=== PATIENT | male | born 1960 | race Caucasian/White ===

== ENCOUNTER 2019-07-19 16:21 | Outpatient (CLI) | payer OTHER, SELFPAY ==
[2019-07-19 16:49] LABS: Hematocrit 41.2 % (42.0-52.0); Hemoglobin 14.5 g/dL (14.0-18.0); Mean Corpuscular HGB Conc 35.2 g/dl (32-36); Mean Corpuscular Hemoglobin 34.9 pg (26-34); Mean Corpuscular Volume 99.3 fl (80-100); Mean Platelet Volume 9.5 fl (7.4-10.4); Platelet Count Result 240 k/mm3 (150-375); Red Blood Count 4.15 M/mm3 (4.6-6.20); Red Cell Distribution Width 13.3 % (11.5-14.5); White Blood Count 5.3 K/mm3 (4.5-10.0)
[2019-07-19 16:59] LABS: Cholesterol 204 mg/dL (0-200); HDL Direct 60 mg/dL; Triglycerides 208 mg/dL (<150)
[2019-07-19 17:10] LABS: LDL Cholesterol Direct 115 mg/dL
[2019-07-19 17:35] LABS: Free T4 Free Thyroxine 0.88 ng/mL (0.78-2.19)
== END 2019-07-19 16:22 | disposition home or self-care (01) ==
PROVIDERS: PCP Family Medicine; Visit Provider Nurse Practitioner Family
DX: R53.83 Other fatigue (principal); E78.5 Hyperlipidemia, unspecified
CPT/HCPCS: 36415; 80061; 84439; 84443; 85027

== ENCOUNTER 2020-04-13 02:29 | Outpatient (CLI) | payer OTHER, SELFPAY ==
[2020-04-13 19:32] LABS: SARS-CoV-2 RNA PCR Negative
== END 2020-04-13 02:30 | disposition home or self-care (01) ==
LOC: ANHCOVIDDT 02:29
PROVIDERS: PCP Family Medicine; Visit Provider Internal Medicine Gastroenterology
DX: Z01.812 Encounter for preprocedural laboratory examination (principal); Z20.822 Contact with and (suspected) exposure to COVID-19
CPT/HCPCS: C9803; U0003

== ENCOUNTER 2020-04-16 00:44 | Day surgery (SDC) | payer OTHER, SELFPAY ==
[2020-04-09 08:35] VITALS: BMI 27.8
[2020-04-16 08:51] VITALS: BP 146/71; PULSE 58; RESP 16; TEMP 36.4; O2SAT 100; BMI 26.6
[2020-04-16] MEDS: LACTATED RINGERS 1,000 ML 150 ML IV CONT (09:03)
--- NOTE | 2020-04-16 09:21 | WPDANESEPPF ---
Anes - Initial Pre Proc Eval Procedure: Operation Date: 04/16/20 10:00 Proposed Procedures p Screening Colonoscopy - Mio Palacios MD Date/Time: 04/16/20 09:21 Surgeon: Mio Palacios MD Pre Op Diagnosis: Neoplasm Screening Patient Data Age: 59 Gender: M Height: 5 ft 10 in Weight: 84.1 kg Last Vital Signs Temp 97.6 F 04/16/20 08:51 Pulse 58 L 04/16/20 08:51 Resp 16 04/16/20 08:51 BP 146/71 H 04/16/20 08:51 Pulse Ox 100 04/16/20 08:51 Allergies Allergy/AdvReac Type Severity Reaction Status Date / Time fexofenadine Allergy Intermediate Night Verified 04/16/20 08:50 sweats Penicillins Allergy Intermediate Rash Verified 04/16/20 08:50 Home Medications Medication Instructions Recorded Confirmed Type hydrocodone 5 mg-acetaminophen 325 1 tablet PO Q6H PRN 06/06/19 04/16/20 History mg tablet folic acid 1 mg tablet 1 mg PO DAILY 01/09/20 04/09/20 History methotrexate sodium 2.5 mg tablet 25 mg PO WEEKLY tablet 01/09/20 04/16/20 History amlodipine 5 mg tablet 5 mg PO DAILY #90 tablet 01/23/20 04/09/20 Rx sodium,potassium,mag sulfates 17.5 See Rx Instructions PO .COMPLEX 03/26/20 Rx gram-3.13 gram-1.6 gram oral soln #354 ml aspirin [Adult Low Dose Aspirin] 81 mg PO DAILY 04/09/20 04/09/20 History atorvastatin 10 mg PO DAILY 04/09/20 04/09/20 History indomethacin 50 mg PO DAILY 04/09/20 04/09/20 History prednisone 5 mg PO DAILY 04/09/20 04/16/20 History Patient hx anesthesia problems: none Family hx anesthesia problems: none PMFSH Past Medical History Medical History (Updated 03/07/20 @ 09:42 by Vijay Bolanos MD) Chronic low back pain Essential (primary) hypertension Fatigue History of colon polyps Mixed hyperlipidemia Psoriatic arthritis Surgical History Surgical History (Updated 01/09/20 @ 16:21 by Jackeline Wade) History of ankle surgery left 1988 or 1989 Family History Family History Mother Patient's mother is Family history of malignant neoplasm, Onset Age: 58 Father Patient's father is Social History Social History Smoking status: Never smoker Second hand tobacco smoke exposure: No Alcohol intake: current Drinks per week: 6 Substance use: current Substance use type: marijuana Other substance usage details: OCC. FOR ARTHRITIS PAIN Living arrangements: with family Spiritual care concerns: No Anes - Eval Final PreProcedure Day of Procedure 04/16/20 09:21 Patient weight: normal Heart: regular rate and rhythm Lungs: clear to auscultation Airway: Mallampati scale class II Neurological: alert and oriented Last oral intake: >/= 8 hours ASA classification: II Emergent: no Anesthetic plan: proceed Anesthesia type and monitoring: general GIVS and standard monitoring Informed Consent: The patient's anesthetic plan and its attendant risks and benefits were discussed with the patient/family/POA. Questions were solicited and answers provided to the satisfaction of the patient/family/POA.
--- NOTE | 2020-04-16 10:24 | PM.HPGS ---
History of Present Illness History of Present Illness Consent: Risks, benefits, and alternatives have been discussed and questions answered. Patient agrees to proceed with procedure. Chief complaint: Neoplasm Screening Narrative: Nikita Nicole is a 59 year old male with colon polyp 2014 Review of Systems Constitutional: Constitutional: Denies headache(s) and Denies weakness Eyes: Eyes: Denies blurry vision ENT: Reports Normal hearing present, Denies headache(s) and Denies neck pain Cardiovascular: Cardiovascular: Denies chest pain and Denies dyspnea Respiratory: Respiratory: Denies dyspnea Gastrointestinal: Gastrointestinal: Reports no additional gastrointestinal complaints Genitourinary: Genitourinary: Denies dysuria Musculoskeletal: Musculoskeletal: Denies neck pain Integumentary/Breasts: Skin/Breast: Denies dry skin Neurologic: Reports Normal hearing present, Denies headache(s) and Denies weakness Psychiatric: Psychiatric: Denies anxiety Endocrine: Endocrine: Denies change in body appearance Hematologic/Lymphatic: Hematologic/Lymphatic: Denies easy bleeding Allergic/Immunologic: Allergic/Immunologic: Denies urticaria [facility] Past Medical History Medical History (Updated 04/16/20 @ 10:24 by Mio Palacios MD) Adenomatous colon polyp Chronic low back pain Essential (primary) hypertension Fatigue History of colon polyps Mixed hyperlipidemia Psoriatic arthritis Surgical History Surgical History (Updated 01/09/20 @ 16:21 by Jackeline Wade) History of ankle surgery left 1988 or 1989 Family History Family History Mother Patient's mother is Family history of malignant neoplasm, Onset Age: 58 Father Patient's father is Social History Social History Smoking status: Never smoker Second hand tobacco smoke exposure: No Alcohol intake: current Drinks per week: 6 Substance use: current Substance use type: marijuana Other substance usage details: OCC. FOR ARTHRITIS PAIN Living arrangements: with family Spiritual care concerns: No Meds Home Medications and Allergies Home Medications Medication Instructions Recorded Confirmed Type hydrocodone 5 mg-acetaminophen 325 1 tablet PO Q6H PRN 06/06/19 04/16/20 History mg tablet folic acid 1 mg tablet 1 mg PO DAILY 01/09/20 04/09/20 History methotrexate sodium 2.5 mg tablet 25 mg PO WEEKLY tablet 01/09/20 04/16/20 History amlodipine 5 mg tablet 5 mg PO DAILY #90 tablet 01/23/20 04/09/20 Rx sodium,potassium,mag sulfates 17.5 See Rx Instructions PO .COMPLEX 03/26/20 Rx gram-3.13 gram-1.6 gram oral soln #354 ml aspirin [Adult Low Dose Aspirin] 81 mg PO DAILY 04/09/20 04/09/20 History atorvastatin 10 mg PO DAILY 04/09/20 04/09/20 History indomethacin 50 mg PO DAILY 04/09/20 04/09/20 History prednisone 5 mg PO DAILY 04/09/20 04/16/20 History Allergies Allergy/AdvReac Type Severity Reaction Status Date / Time fexofenadine Allergy Intermediate Night Verified 04/16/20 08:50 sweats Penicillins Allergy Intermediate Rash Verified 04/16/20 08:50 Vital Signs Vital Signs - 24 hr 04/16/20 08:51 Temperature 97.6 F Pulse Rate 58 L Respiratory Rate 16 Blood Pressure 146/71 H Pulse Oximetry 100 Exam Const: General: comfortable and no acute distress HENMT: General nose exam: Normal nares present Eyes: General: appearance normal, both eyes and all related structures Neck: Neck: no JVD Resp: Auscultation: clear to auscultation bilaterally Cardio: Rate: regular rate Rhythm: regular rhythm GI: Inspection: non-distended GI Palp: Yes Soft to palpation Skin: General skin exam: normal color Neuro: General: gait normal Speech: normal speech Extrem: General: normal to inspection Psych: Mental Status: mental status grossly normal Assessment and
[2020-04-16 10:48] VITALS: BP 99/68; PULSE 74; RESP 22; O2SAT 98
[2020-04-16 10:58] VITALS: BP 113/79; PULSE 58; RESP 18; O2SAT 97
[2020-04-16 11:08] VITALS: BP 125/78; PULSE 54; RESP 20; O2SAT 99
[2020-04-16 11:18] VITALS: BP 123/80; PULSE 58; RESP 18; O2SAT 100
== END 2020-04-16 11:23 | disposition home or self-care (01) ==
PROVIDERS: PCP Family Medicine; Visit Provider Internal Medicine Gastroenterology
PROC: 0DJD8ZZ Inspection of Lower Intestinal Tract, Via Natural or Artificial Opening Endoscopic (ICD-10-PCS; CPT 45378; principal; 2020-04-16 10:00)
DX: Z12.11 Encounter for screening for malignant neoplasm of colon (principal); Z86.010 Personal history of colon polyps; I10 Essential (primary) hypertension; E78.2 Mixed hyperlipidemia; L40.50 Arthropathic psoriasis, unspecified; M54.9 Dorsalgia, unspecified; G89.29 Other chronic pain; Z79.891 Long term (current) use of opiate analgesic; F12.90 Cannabis use, unspecified, uncomplicated
CPT/HCPCS: 45378; C9803; J2704; J7120; U0003

== ENCOUNTER 2020-11-06 10:45 | Emergency (ER) | payer OTHER, SELFPAY ==
--- NOTE | ~2020-11-06 | XR_ITS ---
EXAMINATION: XR ribs RT 2V INDICATION: Right-sided chest pain TECHNIQUE: 3 views of the right ribs were obtained. COMPARISON: None. FINDINGS: The visualized portions of the chest are unremarkable. No displaced rib fracture is identif ied. There is no pleural effusion or pneumothorax. Calcified left hilar lymph nodes are consistent wi th old granulomatous disease. IMPRESSION: 1. No displaced rib fracture identified. Reviewed, dictated and finalized at location A.
--- NOTE | ~2020-11-06 | XR_ITS ---
EXAMINATION: XR shoulder RT min 2V INDICATION: Right shoulder pain TECHNIQUE: Four views of the right shoulder are submitted. COMPARISON: 02/13/2013 FINDINGS: Normal alignment. No fracture. There is a stable lucent lesion with thin sclerotic margin i n the proximal humeral shaft, consistent with a benign finding. There is mild osteoarthritis of the a cromioclavicular and glenohumeral joints. Severe cervical spondylosis is incidentally noted. Soft tis sues are unremarkable. IMPRESSION: 1. No acute osseous abnormality. Reviewed, dictated and finalized at location A.
[2020-11-06 10:56] VITALS: BP 132/77; PULSE 63; RESP 16; TEMP 37; O2SAT 100
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
[2020-11-06] MEDS: TETANUS,DIPHTHERIA,AC PERTUSSIS ADULT (0.5 ML) BOOSTRIX IM (11:26)
== END 2020-11-06 11:50 | disposition home or self-care (01) ==
PROVIDERS: Emergency Provider Nurse Practitioner
DX: S49.91XA Unspecified injury of right shoulder and upper arm, initial encounter (principal); S20.211A Contusion of right front wall of thorax, initial encounter; S20.411A Abrasion of right back wall of thorax, initial encounter; S80.211A Abrasion, right knee, initial encounter; V18.4XXA Pedal cycle driver injured in noncollision transport accident in traffic accident, initial encounter; Z23 Encounter for immunization; I10 Essential (primary) hypertension; E78.2 Mixed hyperlipidemia; L40.50 Arthropathic psoriasis, unspecified; Z79.82 Long term (current) use of aspirin
CPT/HCPCS: 71100; 73030; 90471; 90715; 99214; G0463

== ENCOUNTER 2022-03-13 10:28 | Outpatient (CLI) | payer OTHER, SELFPAY ==
--- NOTE | ~2022-03-13 | XR_ITS ---
XR shoulder RT min 2V DATE: 03/13/2022 10:51 INDICATION: Bilateral shoulder pain. Diminished range of motion TECHNIQUE: 4 views of right shoulder COMPARISON: 11/2020 right shoulder FINDINGS: Stable benign proximal humeral shaft lesion with sclerotic rim, possibly a benign fibrous c ortical defect. Normal alignment at the acromioclavicular and glenohumeral joints. Mild right glenohumeral osteoarthr itis with small bony ossicle adjacent to the inferior glenoid rim. Consider CT or MR evaluation. No f racture, dislocation, periosteal reaction or bone destruction. IMPRESSION: Small bony ossicle is suggested along the inferior glenoid rim, not evident on 11/2020. C onsider CT or MR for further evaluation as clinically appropriate Pole benign fibrous cortical defect of the proximal humeral shaft, stable since 11/2020 Reviewed, dictated and finalized at location B. [employer] IMPRESSION: Small bony ossicle is suggested along the inferior glenoid rim, not evident on 11/2020. Consider CT or MR for further evaluation as clinically shobha ropriate Pole benign fibrous cortical defect of the proximal humeral shaft, stable since 11/2020
--- NOTE | ~2022-03-13 | XR_ITS ---
XR shoulder LT min 2V DATE: 03/13/2022 10:52 INDICATION: Bilateral shoulder pain, loss of motion. TECHNIQUE: 4 views of left shoulder COMPARISON: None FINDINGS: No fracture or dislocation, periosteal reaction or bone destruction or abnormal soft tissue calcification. Mild osteoarthritis at left glenohumeral joint. IMPRESSION: Mild osteoarthritic the left glenohumeral joint Reviewed, dictated and finalized at location B. ASSIGNMENT EDITOR
== END 2022-03-13 10:29 | disposition home or self-care (01) ==
LOC: ANHIMG 10:34
PROVIDERS: PCP Family Medicine
DX: M25.511 Pain in right shoulder (principal); M19.012 Primary osteoarthritis, left shoulder
CPT/HCPCS: 73030

== ENCOUNTER 2022-05-15 12:43 | Outpatient (CLI) | payer OTHER, SELFPAY ==
--- NOTE | 2022-05-15 | ECG_ITS ---
Measurements Intervals [place] Rate: 67 P: 59 W[place]: 176 QRS: 43 QRSD: 95 T: 45 QT: 396 QTc: 421 Interpretive Statements SINUS RHYTHM WITH ATRIAL BEATS NO PREVIOUS ECG AVAILABLE FOR COMPARISON Electronically Signed On 05-16-2022 8:15:03 [employer] by Swathi Cerna M.D.
[2022-05-15 13:29] LABS: Anion Gap 3 mmol/L (8-16); Blood Urea Nitrogen 29 mg/dL (9-20); Carbon Dioxide 30 mmol/L (22-30); Chloride 103 mmol/L (98-107); Estimated Glomerular Filt Rate > 60; Glucose 98 mg/dL (65-110); Potassium 3.6 mmol/L (3.4-5.0); Sodium 136 mmol/L (137-145)
== END 2022-05-15 12:44 | disposition home or self-care (01) ==
LOC: ANHLAB 12:47
PROVIDERS: PCP Family Medicine; Visit Provider Orthopaedic Surgery Hand Surgery
DX: M25.511 Pain in right shoulder (principal); M25.512 Pain in left shoulder
CPT/HCPCS: 36415; 80048; 93005

== ENCOUNTER 2023-02-09 03:12 | Day surgery (SDC) | payer OTHER, SELFPAY ==
[2023-01-29 11:36] VITALS: BMI 26.1
--- NOTE | 2023-02-05 11:26 | SUR.PREOP ---
Patient called regarding upcoming procedure. Message left on patient's regarding preop instructions and appointment times. Call back number given.
[2023-02-09 07:23] VITALS: BP 128/73; PULSE 58; RESP 18; TEMP 36.3; O2SAT 94; BMI 24.5
[2023-02-09] MEDS: LACTATED RINGERS 1,000 ML 150 ML IV CONT (07:25)
--- NOTE | 2023-02-09 08:12 | PM.HPGS ---
History of Present Illness History of Present Illness Consent: Risks, benefits, and alternatives have been discussed and questions answered. Patient agrees to proceed with procedure. Chief complaint: epigastric pain, GERD with esophagitis Narrative: Nikita Nicole is a 62 year old male with gerd on omeprazole, never had egd Review of Systems Constitutional: Constitutional: Denies headache(s) and Denies weakness Eyes: Eyes: Denies blurry vision ENT: Reports Normal hearing present, Denies headache(s) and Denies neck pain Cardiovascular: Cardiovascular: Denies chest pain and Denies dyspnea Respiratory: Respiratory: Denies dyspnea Gastrointestinal: Gastrointestinal: Reports no additional gastrointestinal complaints Genitourinary: Genitourinary: Denies dysuria Musculoskeletal: Musculoskeletal: Denies neck pain Integumentary/Breasts: Skin/Breast: Denies dry skin Neurologic: Reports Normal hearing present, Denies headache(s) and Denies weakness Psychiatric: Psychiatric: Denies anxiety Endocrine: Endocrine: Denies change in body appearance Hematologic/Lymphatic: Hematologic/Lymphatic: Denies easy bleeding Allergic/Immunologic: Allergic/Immunologic: Denies urticaria PMFSH Past Medical History Medical History Adenomatous colon polyp Chronic low back pain Essential (primary) hypertension Fatigue GERD (gastroesophageal reflux disease) History of colon polyps Mixed hyperlipidemia Psoriatic arthritis Seasonal allergies Surgical History Surgical History H/O arthroscopy of shoulder (~06/26/22) Right Shoulder History of ankle surgery left 1988 or 1989 Family History Family History Mother Patient's mother is Family history of malignant neoplasm, Onset Age: 58 Father Patient's father is Social History Social History Smoking status: Never smoker Second hand tobacco smoke exposure: No Alcohol intake: current Drinks per week: 3 Substance use: current Substance use type: marijuana Other substance usage details: OCC. FOR ARTHRITIS PAIN Lack of Transportation: No Lack of Food: Never True Current Housing: I Have Housing Concerned About Future Housing: No Difficulty Paying Gas/Electric Bills: No Difficulty Paying for Meds: No Currently Unemployed: No Education: Trade/Vocational Certificate Difficulty w/ Childcare or Family Care: No Living arrangements: with family Occupation/Education: retired Gender identity (if verbalized by the patient): Male Spiritual care concerns: No Agree to blood products: Yes Meds Home Medications and Allergies Home Medications Medication Instructions Recorded Confirmed Type folic acid 1 mg tablet 1 mg PO DAILY 01/09/20 02/09/23 History hydrocodone 10 mg-acetaminophen 1 tablet PO Q8H PRN Pain 07/15/20 02/09/23 History 325 mg tablet [id number] tablet 1 tablet PO DAILY 02/06/21 02/09/23 History atorvastatin 40 mg tablet 40 mg PO QHS #90 tabs 01/06/22 02/09/23 Rx tizanidine 4 mg capsule 4 mg PO QHS 01/15/22 02/09/23 History primidone 50 mg tablet 50 mg PO BID 07/22/22 02/09/23 History amlodipine 5 mg tablet 5 mg PO DAILY #90 tabs 09/28/22 02/09/23 Rx methotrexate sodium 2.5 mg tablet 25 mg PO WEEKLY 12/30/22 02/09/23 History omeprazole 40 mg capsule,delayed 40 mg PO BID #180 caps 12/30/22 02/09/23 Rx release prednisone 5 mg tablet 5 mg PO DAILY 12/30/22 02/09/23 History sulfasalazine 500 mg tablet 0.5 g PO DAILY PRN Flair up 12/30/22 02/09/23 History Allergies Allergy/AdvReac Type Severity Reaction Status Date / Time fexofenadine Allergy Intermediate Night Verified 02/09/23 07:21 sweats Penicillins Allergy Intermediate Rash Verified 02/09/23 07:21
--- NOTE | 2023-02-09 08:14 | WPDANESEPPF ---
Anes - Initial Pre Proc Eval Procedure: Operation Date: 02/09/23 08:30 Proposed Procedures p Esophagogastroduodenoscopy - Mio Palacios MD Date/Time: 02/09/23 08:14 Surgeon: Mio Palacios MD Pre Op Diagnosis: epigastric pain, GERD with esophagitis Patient Data Age: 62 Gender: M Height: 1.8 m Weight: 79.9 kg Last Vital Signs Temp 97.4 F L 02/09/23 07:23 Pulse 58 L 02/09/23 07:23 Resp 18 02/09/23 07:23 BP 128/73 02/09/23 07:23 Pulse Ox 94 02/09/23 07:23 O2 Del Method Room Air 02/09/23 07:23 Allergies Allergy/AdvReac Type Severity Reaction Status Date / Time fexofenadine Allergy Intermediate Night Verified 02/09/23 07:21 sweats Penicillins Allergy Intermediate Rash Verified 02/09/23 07:21 Home Medications Medication Instructions Recorded Confirmed Type folic acid 1 mg tablet 1 mg PO DAILY 01/09/20 02/09/23 History hydrocodone 10 mg-acetaminophen 1 tablet PO Q8H PRN Pain 07/15/20 02/09/23 History 325 mg tablet [id number] tablet 1 tablet PO DAILY 02/06/21 02/09/23 History atorvastatin 40 mg tablet 40 mg PO QHS #90 tabs 01/06/22 02/09/23 Rx tizanidine 4 mg capsule 4 mg PO QHS 01/15/22 02/09/23 History primidone 50 mg tablet 50 mg PO BID 07/22/22 02/09/23 History amlodipine 5 mg tablet 5 mg PO DAILY #90 tabs 09/28/22 02/09/23 Rx methotrexate sodium 2.5 mg tablet 25 mg PO WEEKLY 12/30/22 02/09/23 History omeprazole 40 mg capsule,delayed 40 mg PO BID #180 caps 12/30/22 02/09/23 Rx release prednisone 5 mg tablet 5 mg PO DAILY 12/30/22 02/09/23 History sulfasalazine 500 mg tablet 0.5 g PO DAILY PRN Flair up 12/30/22 02/09/23 History Patient hx anesthesia problems: none Family hx anesthesia problems: none Results Review: All pre-operative results and documents have been reviewed as part of the pre-operative evaluation. [facility] Past Medical History Medical History Adenomatous colon polyp Chronic low back pain Essential (primary) hypertension Fatigue GERD (gastroesophageal reflux disease) History of colon polyps Mixed hyperlipidemia Psoriatic arthritis Seasonal allergies Surgical History Surgical History H/O arthroscopy of shoulder (~06/26/22) Right Shoulder History of ankle surgery left 1988 or 1989 Family History Family History Mother Patient's mother is Family history of malignant neoplasm, Onset Age: 58 Father Patient's father is Social History Social History Smoking status: Never smoker Second hand tobacco smoke exposure: No Alcohol intake: current Drinks per week: 3 Substance use: current Substance use type: marijuana Other substance usage details: OCC. FOR ARTHRITIS PAIN Lack of Transportation: No Lack of Food: Never True Current Housing: I Have Housing Concerned About Future Housing: No Difficulty Paying Gas/Electric Bills: No Difficulty Paying for Meds: No Currently Unemployed: No Education: Trade/Vocational Certificate Difficulty w/ Childcare or Family Care: No Living arrangements: with family Occupation/Education: retired Gender identity (if verbalized by the patient): Male Spiritual care concerns: No Agree to blood products: Yes Anes - Eval Final PreProcedure Day of Procedure 02/09/23 08:14 Patient weight: normal Heart: regular rate and rhythm Lungs: clear to auscultation Airway: Mallampati scale class II Neurological: alert and oriented Last oral intake: >/= 8 hours ASA classification: II Emergent: no Anesthetic plan: proceed Anesthesia type and monitoring: general GIVS and standard monitoring Results Review: All pre-operative results and documents have been reviewed as part of the pre-opera
[2023-02-09 08:28] VITALS: BP 110/70; PULSE 53; RESP 19; O2SAT 100
[2023-02-09 08:38] VITALS: BP 123/76; PULSE 56; RESP 22; O2SAT 99
[2023-02-09 08:48] VITALS: BP 131/79; PULSE 62; RESP 21; O2SAT 98
== END 2023-02-09 08:53 | disposition home or self-care (01) ==
PROVIDERS: PCP Family Medicine; Visit Provider Internal Medicine Gastroenterology
PROC: 0DJ08ZZ Inspection of Upper Intestinal Tract, Via Natural or Artificial Opening Endoscopic (ICD-10-PCS; CPT 43235; principal; 2023-02-09 08:30)
DX: K21.00 Gastro-esophageal reflux disease with esophagitis, without bleeding (principal); K21.9 Gastro-esophageal reflux disease without esophagitis; K31.9 Disease of stomach and duodenum, unspecified; I10 Essential (primary) hypertension; E78.2 Mixed hyperlipidemia; L40.50 Arthropathic psoriasis, unspecified; M54.9 Dorsalgia, unspecified; G89.29 Other chronic pain; Z79.891 Long term (current) use of opiate analgesic; F12.90 Cannabis use, unspecified, uncomplicated
CPT/HCPCS: 43239; 88305; J2704; J7120

== ENCOUNTER 2023-05-12 11:37 | Outpatient (CLI) | payer OTHER, SELFPAY ==
[2023-05-12 18:02] LABS: Basophils Percent Auto 0.4 % (0.2-1.2); Eosinophils Percent Auto 0.6 % (0-4.4); Hematocrit 45.1 % (42.0-52.0); Immature Granulocyte Absolute 0.01 K/mm3 (0.00-0.031); Immature Granulocyte Percent A 0.2 % (0-0.5); Lymphocytes Percent Auto 12.8 % (18.3-44.2); Mean Corpuscular HGB Conc 33.3 g/dl (32-36); Mean Corpuscular Hemoglobin 36.2 pg (26-34); Mean Corpuscular Volume 108.9 fl (80-100); Mean Platelet Volume 10.4 fl (7.4-10.4); Monocytes Absolute Auto 0.3 K/mm3 (0.1-0.6); Monocytes Percent Auto 5.7 % (2.6-8.5); Neutrophils Absolute Auto 3.8 K/mm3 (1.3-6.7); Neutrophils Percent Auto 80.3 % (45.5-73.1); Platelet Count Result 194 k/mm3 (150-375); Red Blood Count 4.14 M/mm3 (4.6-6.20); Red Cell Distribution Width 13.8 % (11.5-14.5); White Blood Count 4.7 K/mm3 (4.5-10.0)
[2023-05-12 18:21] LABS: Free T4 Free Thyroxine 0.88 ng/mL (0.78-2.19); Vitamin D 25 Hydroxy 80.3 ng/mL
[2023-05-12 18:29] LABS: Alanine Aminotransferase 36 U/L (6-50); Albumin Level 4.2 g/dL (3.5-5.1); Alkaline Phosphatase 101 U/L (38-126); Anion Gap 5 mmol/L (8-16); Aspartate Amino Transferase 44 U/L (17-59); Bilirubin,Total 0.4 mg/dL (0.2-1.3); Blood Urea Nitrogen 17 mg/dL (9-20); Calcium 9.7 mg/dL (8.4-10.2); Carbon Dioxide 32 mmol/L (22-30); Chloride 102 mmol/L (98-107); Estimated Glomerular Filt Rate > 60; Glucose 89 mg/dL (65-110); Magnesium 2.4 mg/dL (1.6-2.3); Potassium 4.7 mmol/L (3.4-5.0); Sodium 139 mmol/L (137-145)
[2023-05-12 19:00] LABS: Platelet Estimate Adequate (Adequate); Schistocytes None Seen (NORMAL)
[2023-05-12 19:01] LABS: Macrocytosis 1+ (NORMAL)
[2023-05-12 19:11] LABS: Hemoglobin A1C 5.7 % (<5.7)
[2023-05-17 13:04] LABS: Vitamin B6 22.9 ng/mL (2.1-21.7)
== END 2023-05-12 11:38 | disposition home or self-care (01) ==
LOC: ANHGOSHLAB 11:39
PROVIDERS: PCP Family Medicine; Visit Provider Nurse Practitioner Family
DX: R20.8 Other disturbances of skin sensation (principal); R20.0 Anesthesia of skin; I10 Essential (primary) hypertension; L40.50 Arthropathic psoriasis, unspecified; J30.2 Other seasonal allergic rhinitis; R68.89 Other general symptoms and signs; E53.8 Deficiency of other specified B group vitamins; R20.2 Paresthesia of skin; E55.9 Vitamin D deficiency, unspecified; R73.03 Prediabetes; Z13.29 Encounter for screening for other suspected endocrine disorder
CPT/HCPCS: 36415; 80053; 82306; 82607; 83036; 83735; 84207; 84439; 84443; 85025; 86038

== ENCOUNTER 2023-06-01 10:27 | Outpatient (CLI) | payer OTHER, SELFPAY ==
--- NOTE | ~2023-06-01 | US_ITS ---
EXAMINATION: US art doppler w press UE BI DATE: 06/01/2023 11:40 INDICATION: Unspecified disturbances of skin sensation. TECHNIQUE: Segmental pressures and plethysmographic and Doppler waveforms of the upper extremity christos jono were obtained. COMPARISON: None. FINDINGS: Right and left brachial artery pressures of 85 mm Hg and 107 mm Hg, respectively, are concordant (nor mal difference <= 30 mmHg). The right finger:brachial systolic pressure ratio is 0.80 (normal > 0.8). Arterial Doppler waveforms demonstrate normal upstroke (normal upstroke < 0.2 s). The left finger:brachial systolic pressure ratio is 0.71. Arterial Doppler waveforms demonstrate norm al upstroke. IMPRESSION: 1. Mildly decreased bilateral finger: brachial systolic pressure ratios, consistent with arterial occ lusive disease. Reviewed, dictated and finalized at location A. [facility] IMPRESSION: 1. Mildly decreased bilateral finger: brachial systolic pressure ratios, consis tent with arterial occlusive disease.
== END 2023-06-01 10:28 | disposition home or self-care (01) ==
PROVIDERS: PCP Family Medicine; Visit Provider Family Medicine
DX: R20.9 Unspecified disturbances of skin sensation (principal)
CPT/HCPCS: 93923

== ENCOUNTER 2023-07-30 08:01 | Outpatient (CLI) | payer OTHER, SELFPAY ==
--- NOTE | ~2023-07-30 | CT_ITS ---
EXAMINATION: CTA chest DATE: 07/30/2023 08:32 INDICATION: Peripheral vascular disease. TECHNIQUE: Computed tomographic angiography (CTA) of the chest was performed with 100 mL Omnipaque-35 0 intravenous contrast. Automated exposure control and iterative reconstruction technique were employ ed. The dose-length product was 462.38 mGy-cm. Maximum intensity projection 3D-reconstructions of the aorta and other arteries were constructed by the technologist on a separate workstation. COMPARISON: None. FINDINGS: The lungs demonstrate minimal atelectasis. Calcified left lung nodules and calcified left h ilar and mediastinal lymph nodes are consistent with old granulomatous disease. No pleural effusion. The heart size is normal. There are coronary artery calcifications. No pericardial effusion. There is no significant stenosis of the subclavian arteries or axillary arteries. There is mild aortic athero sclerosis. There is no significant stenosis of celiac axis, superior mesenteric artery, or the renal arteries. There is severe cervical spondylosis. There is mild chronic anterior wedging of multiple ve rtebral bodies. There is moderate thoracic spondylosis. IMPRESSION: 1. No significant arterial occlusive disease. Reviewed, dictated and finalized at location A.
[2023-07-30 08:23] LABS: Estimated Glomerular Filt Rate > 60
== END 2023-07-30 08:02 | disposition home or self-care (01) ==
PROVIDERS: PCP Family Medicine; Visit Provider Internal Medicine Cardiovascular Disease
DX: I73.9 Peripheral vascular disease, unspecified (principal)
CPT/HCPCS: 71275; Q9967

== ENCOUNTER 2024-07-11 11:27 | Outpatient (CLI) | payer OTHER, SELFPAY ==
--- NOTE | ~2024-07-11 | XR_ITS ---
Left Shoulder Technique: AP and axillary views were obtained. Clinical History: Pain Findings: No fracture or dislocation is seen. Osseous alignment is anatomic. The glenohumeral and acr omioclavicular joint spaces are preserved. Soft tissues are unremarkable. Impression: Unremarkable left shoulder radiographs. Reviewed, dictated and finalized at [facility]. Impression: Unremarkable left shoulder radiographs.
== END 2024-07-11 11:28 | disposition home or self-care (01) ==
LOC: MICIMG 11:29
PROVIDERS: PCP Family Medicine; Visit Provider Nurse Practitioner Family
DX: M25.512 Pain in left shoulder (principal)
CPT/HCPCS: 73030